=== PATIENT | female | born 1985 | race Two or more races ===

== ENCOUNTER 2016-08-13 10:39 | Emergency (ER) | payer MEDICAID, OTHER ==
[~2016-08-13] VITALS: Ht 154.9 cm; Wt 68.0 kg
[2016-08-13 11:48] LABS: Basophils # (auto) 0.1 uL; Basophils % (auto) 0.7 % (0.0-2.0); DEFINITIVE VIEW TRANSMISSION; Eosinophils # (auto) 0.1 uL; Lymphocytes # (auto) 2.2 uL; Mean Corpuscular Hgb Conc. 33.1 g/dL (32.0-36.0); Neutrophils # (auto) 5.1 uL
[2016-08-13 11:51] LABS: Albumin 3.9 g/dL (3.4-5.0); Calcium 8.7 mg/dL (8.5-10.1); Potassium 3.6 mmol/L (3.5-5.1)
[2016-08-13 11:56] LABS: Eosinophils % (auto) 0.7 % (0.0-7.0); Hematocrit 38.5 % (36.0-46.0); Hemoglobin 12.7 g/dL (12.2-16.2); Lymphocytes % (auto) 27.9 % (10.0-50.0); Mean Corpuscular Hemoglobin 26.1 pg (28.0-32.0); Mean Corpuscular Volume 78.9 fL (80.0-100.0); Mean Platelet Volume 8.1 fL (7.4-10.4); Monocytes # (auto) 0.5 uL; Monocytes % (auto) 6.4 % (0.0-12.0); Neutrophils % (auto) 64.3 % (37.0-80.0); Platelet Count (auto) 278 10^3/uL (140-450); Red Cell Distribution Width 14.1 % (11.6-16.0)
[2016-08-13 12:04] LABS: BUN/Creatinine Ratio 19.7; Bilirubin, Total 0.2 mg/dL (0.2-1.0); Total Protein 7.4 g/dL (6.4-8.2)
[2016-08-13 12:07] LABS: Urine Bilirubin Negative (Negative); Urine Blood Negative /uL (Negative); Urine Color Yellow (Yellow); Urine Glucose Normal (Normal); Urine Ketone Negative (Negative); Urine Nitrite Negative (Negative); Urine RBC 1 /hpf (0 - 4); Urine Squamous Epithelial Cell MOD /hpf (<5); Urine Urobilinogen Normal (Negative); Urine pH 5.5 (5.0-8.0)
[2016-08-13 13:14] VITALS: BP 117/56
== END 2016-08-13 13:16 | disposition home or self-care (01) ==
LOC: ER 10:40
DX: N39.0 Urinary tract infection, site not specified (principal); K80.20 Calculus of gallbladder without cholecystitis without obstruction
CPT/HCPCS: 36415; 74176; 80053; 81001; 81025; 83690; 85025

== ENCOUNTER 2024-03-11 08:45 | Emergency (ER) | payer MEDICAID ==
[~2024-03-11] VITALS: Ht 157.5 cm; Wt 75.0 kg
--- NOTE | 2024-03-11 09:46 | ED.PDOC ---
SOB-HPI HPI Comments A 38 YEAR OLD FEMALE PRESENTS TO THE ED WITH COMPLAINT OF ASTHMA EXACERBATION. PATIENT REPORTS THAT SHE HAS BEEN EXPERIENCING WORSENING ASTHMA SYMPTOMS FOR THE PAST 4 MONTHS, WORSE OVER THE PAST 2 DAYS. PATIENT RELAYS THAT SHE HAD FOLLOWED UP WITH URGENT CARE AND HER PCP, HAVING AN ALBUTEROL INHALER AND BREATHING MACHINE, BUT HAS HAD MINIMAL RELIEF WITH BOTH. PATIENT STATES SHE TESTED HER O2 SATURATION TODAY NOTING IT WAS 92%, COMING TO THE ED FOR FURTHER TREATMENT. PATIENT DENIES FEVER, CHILLS, CHEST PAIN, DIZZINESS, NAUSEA, VOMITING, HEADACHE, OR OTHER COMPLAINTS. NO OTHER SYMPTOMS OR MODIFYING FACTORS AT THIS TIME. Chief Complaint: Asthma Time Seen by MD: 09:43 Primary Care Provider: DR. ANN Reviewed notes: Nurses Notes, Medications, Allergies Information Source: Patient Mode of Arrival: Ambulatory Severity: Moderate Timing: Days Duration: Since onset Context: At Rest PE Risk Factors: None History of: Asthma Prehospital treatment: None Modifying Factors: Nothing Associated Signs and Symptoms: Wheeze, Cough If cough with SOB: Non-Productive Past Medical History PAST MEDICAL HISTORY: Asthma Surgical History: Denies all surgeries DIRECTOR VISUAL History: No Pertinent DIRECTOR VISUAL History Family History Family History: Unknown Social History Smoker: Non-Smoker Alcohol: Denies ETOH Use Drugs: Denies Drug Use Lives In: Home Constitutional: denies: chills, diaphoresis, fatigue, fever, malaise, sweats, weakness, others EENTM: denies: blurred vision, double vision, ear bleeding, ear discharge, ear drainage, ear pain, ear ringing, eye pain, eye redness, hearing loss, mouth pain, mouth swelling, nasal discharge, nose bleeding, nose congestion, nose pain, photophobia, tearing, throat pain, throat swelling, voice changes, others Respiratory: reports: cough, shortness of breath, wheezing; denies: hemoptysis, orthopnea, SOB at rest, SOB with excertion, stridor, others Cardiovascular: denies: chest pain, dizzy spells, diaphoresis, Dyspnea on exertion, edema, irregular heart beat, left arm pain, lightheadedness, palpitations, PND, syncope, others Gastrointestinal: denies: abdomen distended, abdominal pain, blood streaked bowels, constipated, diarrhea, dysphagia, difficulty swallowing, hematemesis, melena, nausea, poor appetite, poor fluid intake, rectal bleeding, rectal pain, vomiting, others Genitourinary: denies: abnormal vagina bleeding, burning, dyspareunia, dysuria, flank pain, frequency, hematuria, incontinence, pain, , vagina discharge, urgency, others Neurological: denies: dizziness, fainting, headache, left sided numbness, left sided weakness, numbness, paresthesia, pre-existing deficit, right sided numbnes s, right sided weakness, seizure, speech problems, tingling, tremors, weakness, others Musculoskeletal: denies: back pain, gout, joint pain, joint swelling, muscle pain, muscle stiffness, neck pain, others Integumetry: denies: bruises, change in color, change in hair/nails, dryness, laceration, lesions, lumps, rash, wounds, others Allergic/Immunocompromised: denies: Difficulty Healing, Frequent Infections, Hives, Itching, others Hematologic/Lymphatic: denies: anemia, blood clots, easy bleeding, easy bruising, swollen glands, others Endocrine: denies: excessive hunger, excessive sweating, excessive thirst, excessive urination, flushing, intolerance to cold, intolerance to heat, unexplained weight gain, unexplained weight loss, others Psychiatric: denies: anxiety, bipolar disorder, depression, hopeless, panic disorder, schizophrenia, sleepless, suicidal, others All Other Systems: Reviewed and Negative Physical Exam General Appearance: No Apparent Distress, Normal HEENT: Normal ENT Inspection, PERRL/EOMI Neck: Full Range of Motion, Non-Tender, Normal, Normal Inspection Respiratory: Chest Non-Tender, Expiration, No Accessory Muscle Use, No Respiratory Distress, Rhonchi, Wheezing Cardiovascular: No Edema, No JVD, No Murmur, No Gallop, Normal Peripheral Pulses, Regular Rate/Rhythm Breast Exam: Deferred Gastrointestinal: No Organomegaly, Non Tender, No Pulsatile Mass, Normal Bowel Sounds, Soft Genitalia: Deferred Pelvic: Deferred Rectal: Deferred Extremities: No calf tenderness, Normal capillary refill, Normal inspection, Normal range of motion, Non-tender, No pedal edema Musculoskeletal : Apperance: Normal Neurologic: Alert, 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 Was a procedure done?: No Differential Dx Differential Diagnosis: Asthma, Pneumonia, URI X-Ray, Labs, Meds, VS Vital Signs Date Time Temp Pulse Resp B/P (MAP) Pulse Ox O2 Delivery O2 Flow Rate FiO2 03/11/24 09:54 20 93 Room Air* 0 21 03/11/24 09:50 95 18 96 Room Air 03/11/24 09:50 98.8 95 18 120/77 (91) 96 98.8 03/11/24 09:13 16 96 Room Air* 0 21 03/11/24 09:13 98.8 95 18 120/77 (91) 96 Current Medications Medications (Trade) Dose Ordered Sig/Barry Route Start Time Stop Time Status Last Admin Albuterol (Ventolin Medneb) 2.5 mg ONCE ONCE NEB 03/11/24 09:45 03/11/24 09:46 DC 03/11/24 09:54 Ipratropium [place] (Atrovent Medneb) 0.5 mg ONCE ONCE NEB 03/11/24 09:45 03/11/24 09:46 DC 03/11/24 09:54 Methylprednisolone Sodium Succinate (Solu Medrol) 125 mg ONCE ONCE IM 03/11/24 09:45 03/11/24 09:46 DC 03/11/24 09:50 X-Ray, Labs, Meds, VS Comment TREATMENT: SOLU-MEDROL 125MG, ALBUTEROL, ATROVENT CHEST X RAY: INTERPRETED BY ME. NO ACUTE FINDINGS. NO PNEUMONIA. NO CONSOLIDATIONS. NO INFILTRATES. PENDING RADIOLOGIST REPORT. Images Reviewed?: Images reviewed and evaluated by me Time of 1ST Reevaluation: 10:18 Reevaluation 1ST: Improved Patient Education/Counseling: Diagnosis, Treatment, Prognosis, Need For Follow Up Family Education/Counseling: Diagnosis, Treatment, No Family Present Medical Screening: No EMC Exist At This Time Departure 1 Departure Time of Disposition: 10:18 Impression: Primary Impression: Asthma exacerbation Qualified Codes: J45.31 - Mild persistent asthma with (acute) exacerbation Disposition: 01 HOME / SELF CARE / HOMELESS Condition: Stable Additional Instructions: FOLLOW-UP WITH PCP IN 1 TO 2 DAYS. TAKE MEDICATIONS PRESCRIBED. RETURN TO ED FOR ANY NEW OR WORSENING SYMPTOMS. e-Prescriptions Prednisone (Prednisone) 20 Mg Tab 60 MG PO DAILY, #15 TAB Prov: DENY KRISHNA 03/11/24 Albuterol Sulfate (Albuterol Sulfate Hfa) 108 Mcg/Act Aer 108 MCG IN TID, #120 AER Prov: DENY KRISHNA 03/11/24 Azithromycin (ZITHROMAX TABLET) 250 Mg Tb 250 MG PO DAILY, #6 TAB Prov: DENY KRISHNA 03/11/24 Discharged With: Self Critical Care Note Critical Care Time?: No Stability Stability form required: No Heart Score Heart Score: Heart Score Response (Comments) Value History N/A 0 EKG N/A 0 Age N/A 0 Risk Factors N/A 0 Troponin N/A 0 Total 0 I personally scribed for DENY KRISHNA ([email or web address]) on 03/11/24 at 09:46. Electronically submitted by Mickey Leach ([email or web address]). I personally scribed for DENY KRISHNA ([email or web address]) on 03/11/24 at 09:50. Electronically submitted by Mickey Leach ([email or web address]). DENY KRISHNA Mar 11, 2024 09:46
[2024-03-11 09:50] VITALS: BP 120/77; PULSE 95; TEMP 98.8
[2024-03-11] MEDS: methylPREDNISolone SOD SUCC 125 MG/2 ML VL IM ONE (09:50)
[2024-03-11 09:54] VITALS: RESP 20; O2SAT 93
[2024-03-11] MEDS: IPRATROPIUM BROM 0.5 MG/2.5ML INH SOL NEB ONE (09:54)
[2024-03-11] MEDS: ALBUTEROL SULF 2.5 MG/0.5ML(0.5%) NEB SOLN NEB ONE (09:54)
[2024-03-11] MEDS ORDERED: ALBU108A5 IN (10:21)
[2024-03-11] MEDS ORDERED: AZIT-185 PO (10:21)
[2024-03-11] MEDS ORDERED: PRED20TA2 PO (10:21)
--- NOTE | 2024-03-11 10:25 | DVH ---
EXAM: XY CHEST PORTABLE Indication:SOB, HX OF ASTHMA Technique: Single frontal view of the chest was obtained Comparison: None FINDINGS: Lines and Tubes: None Lungs: No focal consolidation. Pleura: No effusion. No pneumothorax. Cardiomediastinal contours: Unremarkable Bones: No acute osseous abnormality. IMPRESSION: No acute cardiopulmonary disease.
== END 2024-03-11 10:30 | disposition home or self-care (01) ==
LOC: ER 08:45
DX: J45.31 Mild persistent asthma with (acute) exacerbation (principal)
CPT/HCPCS: 71045; 94640; 96372; 99283; J2919

== ENCOUNTER 2024-04-10 07:03 | Emergency (ER) | payer MEDICAID ==
[~2024-04-10] VITALS: Ht 157.5 cm; Wt 75.7 kg
[~2024-04-10 07:03] MED LIST: ALBU108A5 IN; AZIT-185 PO; PRED20TA2 PO
[2024-04-10 08:13] VITALS: BP 113/68; PULSE 95; RESP 16; TEMP 98.4; O2SAT 92
[2024-04-10 08:24] VITALS: RESP 20; O2SAT 99
[2024-04-10] MEDS: IPRATROPIUM BROM 0.5 MG/2.5ML INH SOL NEB ONE (08:24)
[2024-04-10] MEDS: ALBUTEROL SULF 2.5 MG/0.5ML(0.5%) NEB SOLN NEB ONE (08:24)
--- NOTE | 2024-04-10 08:30 | ED.PDOC ---
SOB-HPI HPI Comments A 38 YEAR OLD FEMALE WITH PMHX ASTHMA PRESENTS TO ED FOR CHIEF COMPLAINT ON AND OFF COUGH [id number] WITH WHEEZING THAT BEGAN YESTERDAY. PT STATES HER INHALER IS NOT ALLEVIATING ANY SYMPTOMS AND PCP CONTINUES TO CANCEL APPTS. PT DENIES CHEST PAIN AND SOB, FEVER, HEADACHE, DIZZINESS, NAUSEA, VOMITING AND OTHER COMPLAINTS. NO OTHER SYMPTOMS REPORTED. PATIENT IS ALERT, ORIENTED X 4, AND HAS STEADY GAIT. Chief Complaint: Asthma Time Seen by MD: 08:03 Primary Care Provider: DR. ANN Reviewed notes: Nurses Notes, Medications, Allergies Information Source: Patient Mode of Arrival: Ambulatory Severity: Mild, Moderate Timing: Months Duration: Since onset Context: At Rest PE Risk Factors: None History of: Asthma, Anxiety Modifying Factors: Nothing Associated Signs and Symptoms: Wheeze, Cough If cough with SOB: Productive Past Medical History PAST MEDICAL HISTORY: Asthma Surgical History: Denies all surgeries CRIMINAL JUSTICE INSTRUCTOR History: No Pertinent CRIMINAL JUSTICE INSTRUCTOR History Family History Family History: Unknown Social History Smoker: Non-Smoker Alcohol: Denies ETOH Use Drugs: Denies Drug Use Lives In: Home Constitutional: denies: chills, diaphoresis, fatigue, fever, malaise, sweats, weakness, others EENTM: denies: blurred vision, double vision, ear bleeding, ear discharge, ear drainage, ear pain, ear ringing, eye pain, eye redness, hearing loss, mouth pain, mouth swelling, nasal discharge, nose bleeding, nose congestion, nose pain, photophobia, tearing, throat pain, throat swelling, voice changes, others Respiratory: reports: cough, wheezing; denies: hemoptysis, orthopnea, SOB at rest, shortness of breath, SOB with excertion, stridor, others Cardiovascular: denies: chest pain, dizzy spells, diaphoresis, Dyspnea on exertion, edema, irregular heart beat, left arm pain, lightheadedness, palpitations, PND, syncope, others Gastrointestinal: denies: abdomen distended, abdominal pain, blood streaked bowels, constipated, diarrhea, dysphagia, difficulty swallowing, hematemesis, melena, nausea, poor appetite, poor fluid intake, rectal bleeding, rectal pain, vomiting, others Genitourinary: denies: abnormal vagina bleeding, burning, dyspareunia, dysuria, flank pain, frequency, hematuria, incontinence, pain, , vagina discharge, urgency, others Neurological: denies: dizziness, fainting, headache, left sided numbness, left sided weakness, numbness, paresthesia, pre-existing deficit, right sided numbness, right sided weakness, seizure, speech problems, tingling, tremors, weakness, others Musculoskeletal: denies: back pain, gout, joint pain, joint swelling, muscle pain, muscle stiffness, neck pain, others Integumetry: denies: bruises, change in color, change in hair/nails, dryness, laceration, lesions, lumps, rash, wounds, others Allergic/Immunocompromised: denies: Difficulty Healing, Frequent Infections, Hives, Itching, others Hematologic/Lymphatic: denies: anemia, blood clots, easy bleeding, easy bruising, swollen glands, others Endocrine: denies: excessive hunger, excessive sweating, excessive thirst, excessive urination, flushing, intolerance to cold, intolerance to heat, unexplained weight gain, unexplained weight loss, others Psychiatric: denies: anxiety, bipolar disorder, depression, hopeless, panic disorder, schizophrenia, sleepless, suicidal, others All Other Systems: Reviewed and Negative Physical Exam General Appearance: No Apparent Distress, Normal HEENT: Normal ENT Inspection, PERRL/EOMI, Pharynx Normal, TMs Normal Neck: Full Range of Motion, Non-Tender, Normal, Normal Inspection Respiratory: Chest Non-Tender, Expiration, No Accessory Muscle Use, No Respiratory Distress, Rhonchi, Wheezing Cardiovascular: No Edema, No JVD, No Murmur, No Gallop, Normal Peripheral Pulses, Regular Rate/Rhythm Breast Exam: Deferred Gastrointestinal: No Organomegaly, Non Tender, No Pulsatile Mass, Normal Bowel Sounds, Soft Genitalia: Deferred Pelvic: Deferred Rectal: Deferred Extremities: No calf tenderness, Normal capillary refill, Normal inspection, Normal range of motion, Non-tender, No pedal edema Musculoskeletal : Apperance: Normal Neurologic: Alert, 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 Was a procedure done?: No Differential Dx Differential Diagnosis: Asthma, Bronchitis, Pneumonia, Allergic Rhinitis X-Ray, Labs, Meds, VS Vital Signs Date Time Temp Pulse Resp B/P (MAP) Pulse Ox O2 Delivery O2 Flow Rate FiO2 04/10/24 08:24 20 99 Room Air* 0 21 04/10/24 08:13 98.4 95 16 113/68 (83) 92 98.4 04/10/24 08:13 95 16 92 Room Air* 0 21 04/10/24 07:34 16 93 Room Air* 0 21 04/10/24 07:34 98.4 95 16 113/68 (83) 93 Current Medications Medications (Trade) Dose Ordered Sig/Barry Route Start Time Stop Time Status Last Admin Methylprednisolone Sodium Succinate (Solu Medrol) 125 mg ONCE ONCE IM 04/10/24 08:15 04/10/24 08:16 DC 04/10/24 08:32 Albuterol (Ventolin Medneb) 5 mg ONCE ONCE NEB 04/10/24 08:15 04/10/24 08:16 DC 04/10/24 08:24 Ipratropium [place] (Atrovent Medneb) 1 mg ONCE ONCE NEB 04/10/24 08:15 04/10/24 08:16 DC 04/10/24 08:24 X-Ray, Labs, Meds, VS Comment COURSE: EXTERNAL MEDICAL RECORDS REVIEWED: [NONE] INDEPENDENT HISTORIANS: [NONE] SOCIAL DETERMINANTS OF HEALTH: [NONE] LABS ORDERED: NONE REVIEWED AND INTERPRETED RESULTS: NONE IMAGING ORDERED: CXR NORMAL CHEST X RAY RESULT: INTERPRETED BY ME. NO ACUTE FINDINGS. NO PNEUMONIA. NO CONSOLIDATIONS. NO INFILTRATES, READ BY ME, PENDING RADIOLOGIST REPORT. TREATMENTS ORDERED: IPRATROPIUM MEDNEB 1MG NEB, ALBUTEROL MEDNEB 5MG NEB, METHYLPREDNISOLONE 125MG IM PROCEDURES PERFORMED: NONE CRITICAL CARE TIME: NONE I HAVE DISCUSSED THE PATIENT WITH THE ATTENDING PHYSICIAN DR. CURTIS DOMINGUEZ AND SHE AGREES WITH THE PATIENT'S PLAN OF CARE AND DISPOSITION. GIVEN THE HISTORY AND PRESENT ILLNESS OF THE PATIENT, AFTER REVIEWING LABS, IMAGING, AND COURSE OF TREATMENT ADMINISTERED DURING THEIR ED VISIT, THERE IS LOW SUSPICION FOR RED FLAG FINDINGS. BASED ON HISTORY OF PRESENT ILLNESS, AND PHYSICAL EXAM, PATIENT WILL BE DISCHARGED HOME. DISCUSSED PLAN FOR DISCHARGE HOME WITH RX. MEDICATION WARNINGS GIVEN. SHARED DECISION MAKING: DISCUSSED WITH PATIENT THAT THEIR WORKUP WAS NORMAL. PATIENT INSTRUCTED TO FOLLOW UP WITH PRIMARY CARE PROVIDER IN 1-2 DAYS FOR RE- EVALUATION OF SYMPTOMS. PATIENT VERBALIZES UNDERSTANDING TO RETURN TO ED FOR NEW OR WORSENING SYMPTOMS OR IF FOLLOW UP WITH PCP CANNOT BE OBTAINED. PATIENT FEELS COMFORTABLE GOING HOME AT THIS TIME. ALL QUESTIONS ADDRESSED AT TIME OF DISCHARGE. Time of 1ST Reevaluation: 09:00 Reevaluation 1ST: Improved Patient Education/Counseling: Diagnosis, Treatment, Need For Follow Up Family Education/Counseling: Diagnosis, Treatment, No Family Present Medical Screening: No EMC Exist At This Time Departure 1 Departure Time of Disposition: 09:00 Impression: Primary Impression: Asthmatic bronchitis Qualified Codes: J45.21 - Mild intermittent asthma with (acute) exacerbation Disposition: HOME / SELF CARE / HOMELESS Condition: Stable Additional Instructions: FOLLOW-UP WITH PCP IN 1 TO 2 DAYS. TAKE MEDICATIONS PRESCRIBED. RETURN TO ED FOR ANY NEW OR WORSENING SYMPTOMS. e-Prescriptions Ipratropium-Albuterol (COMBIVENT RESPIMAT) Respimat Aer 1 VIAL IN BID, #120 AER Prov: DENY KRISHNA 04/10/24 Promethazine-Dm (Promethazine Dm 6.25-15 mg/5Ml) 1 Nallely Nallely 5 ML PO DAILY, #180 ML Prov: DENY KRISHNA 04/10/24 Prednisone (Prednisone) 20 Mg Tab 60 MG PO DAILY, #15 TAB Prov: DENY KRISHNA 04/10/24 Discharged With: Self Critical Care Note Critical Care Time?: No Stability Stability form required: No Heart Score Heart Score: Heart Score Response (Comments) Value History N/A 0 EKG N/A 0 Age N/A 0 Risk Factors N/A 0 Troponin N/A 0 Total 0 I personally scribed for DENY KRISHNA ([email or web address]) on 04/10/24 at 08:30. Electronically submitted by Urmila Rodgers ([email or web address]). DENY KRISHNA Apr 10, 2024 08:30
[2024-04-10] MEDS: methylPREDNISolone SOD SUCC 125 MG/2 ML VL IM ONE (08:32)
[2024-04-10] MEDS ORDERED: IPRAAER6 IN (09:00)
[2024-04-10] MEDS ORDERED: PROM1SOL4 PO (09:00)
--- NOTE | 2024-04-10 09:12 | DVH ---
CHEST RADIOGRAPH Indication: COUGH Technique: Single frontal view of the chest was obtained COMPARISON: XY CHEST PORTABLE on DOS: 03/11/24 FINDINGS: Lines and Tubes: None Lungs: Clear Pleura: No effusion. No pneumothorax. Cardiomediastinal contours: Unremarkable Bones: Unremarkable Other: Surgical clips in the right upper quadrant. IMPRESSION: No evidence of acute cardiopulmonary disease.
== END 2024-04-10 09:15 | disposition home or self-care (01) ==
LOC: ER 07:03
DX: J45.909 Unspecified asthma, uncomplicated (principal)
CPT/HCPCS: 71045; 94640; 96372; 99283; J2919